=== PATIENT | male | born 1995 | race Caucasian/White ===

== ENCOUNTER 2017-06-16 16:41 | Emergency (ER) | payer OTHER ==
[2017-06-16 16:50] VITALS: TEMP 98
[2017-06-16] MEDS ORDERED: DIPH,PERTUS(ACELL)TETVAC-LF 0.5 ML VIAL IM ONE (16:52)
[2017-06-16 17:20] VITALS: BP 135/67; PULSE 95; RESP 18
--- NOTE | 2017-06-16 17:32 | ED ---
Wound/Laceration HPI - General Chief Complaint: Wound/Laceration Stated Complaint: Laceration-[facility] Time Seen by Provider: 06/16/17 16:48 Source: patient, RN notes reviewed Mode of arrival: ambulatory Limitations: no limitations - History of Present Illness Initial Comments: This is a 21-year-old male who presents to the emergency department with chief complaint of finger laceration. Patient states that immediately prior to arrival he was working at [employer] He was cleaning off a knife with a paper towel and lacerated his right third digit. Patient states that he notified his manager filter who transported him immediately to the emergency department. Patient states he is unsure if he is up-to-date with his tetanus vaccination. Denies fever, chills, chest pain, shortness of breath, abdominal pain, nausea or vomiting, constipation or diarrhea, dysuria or hematuria, numbness or tingling, headache or vision changes. - Related Data Previous Rx's Medication Instructions Recorded Cephalexin [Keflex] 500 mg PO Q12HR #20 cap 06/16/17 Allergies Allergy/AdvReac Type Severity Reaction Status Date / Time No Known Allergies Allergy Verified 06/16/17 16:55 Review of Systems ROS Statement: Those systems with pertinent positive or pertinent negative responses have been documented in the HPI. ROS Other: All systems not noted in ROS Statement are negative. Past Medical History Past Medical History: No Reported History History of Any Multi-Drug Resistant Organisms: None Reported Past Surgical History: Ear Surgery Past Psychological History: No Psychological Hx Reported Smoking Status: Never smoker Past Alcohol Use History: None Reported Past Drug Use History: Marijuana General Exam - General Exam Comments Initial Comments: General: Awake and alert, well-developed; in no apparent distress. HEENT: Head atraumatic, normocephalic. Pupils are equal, round and reactive to light. Extraocular movements intact. Oropharynx moist without erythema or exudate. Neck: Supple. Normal ROM. Cardiovascular: Regular rate and rhythm. No murmurs, rubs or gallops. Chest symmetrical. Respiratory: Lungs clear to auscultation bilaterally. No wheezes, rales or rhonchi. Normal respiratory effort with no use of accessory muscles. Musculoskeletal: Normal active and passive range of motion of the right third digit. Sensation is intact. Radial pulses are 2+ equal and palpable bilaterally. Skin: [place], warm and dry. There is a 1.5 cm superficial crescent-shaped laceration over palmar aspect of the DIP joint right third digit. Bleeding is controlled. Neurological: Alert and oriented x3. CN II-XII grossly intact. Speech is fluent and answers are appropriate. No focal neuro deficits. Psychiatric: Normal mood and affect. No overt signs of depression or anxiety noted. Limitations: no limitations Course Vital Signs 06/16/17 16:47 Temperature 98.0 F Pulse Rate 95 Respiratory 18 Rate Blood Pressure 135/67 O2 Sat by Pulse 99 Oximetry Procedures - Laceration Laceration #1 Indication: laceration Site: hand (distal right 3rd digit ) Size (cm): 1 (1.5cm ) Description: irregular (crescent-shaped) Depth: simple, single layer Anesthetic Used: lidocaine 1% Anesthesia Technique: nerve block Pre-repair: wound explored, irrigated extensively, deep structures intact Type of Sutures: nylon Size of Sutures: 4-0 Number of Sutures: 3 Technique: simple, interrupted Patient Tolerated Procedure: well, no complications Medical Decision Making - Medical Decision Making This is a 21-year-old male who presents to the emergency department with chief complaint of right middle finger laceration. 3 sutures were placed and patient tolerated well without complication. He is neurovascularly intact. x-ray revealed no acute abnormalities. Patient will be discharged with recommendation to have sutures removed in 10-14 days. Given updated tetanus vaccination while in the emergency department. Patient will be allowed to return to work but recommended him to keep sutures covered with a clean, dry dressing. He is in agreement with plan and voices understanding. All questions were answered. Disposition Clinical Impression: Finger laceration Disposition: HOME SELF-CARE Condition: Good Instructions: Finger Laceration (ED) Additional Instructions: Please have sutures removed in 10-14 days either here at the emergency department or with your primary care provider. Please follow up with primary care provider within 1-2 days. Return to emergency department if symptoms should worsen or any concerns arise. Prescriptions: Cephalexin [Keflex] 500 mg PO Q12HR #20 cap Referrals: None,Stated [Primary Care Provider] - 1-2 days Time of Disposition: 17:32
--- NOTE | 2017-06-16 17:32 | XR ---
PROCEDURE: XR finger RT - 3 views DATE AND TIME: 06/16/2017 5:05 PM REFERRING PHYSICIAN: Belén Randall CLINICAL INDICATION: PHH, laceration right middle finger TECHNIQUE: AP and lateral and oblique views COMPARISON: None FINDINGS: There is no fracture or malalignment. The soft tissues are unremarkable. There are no radiopaque foreign bodies. No subcutaneous emphysema. IMPRESSION: NO ACUTE PROCESS.
== END 2017-06-16 17:55 | disposition home or self-care (01) ==
LOC: EC 16:41
DX: S61.212A Laceration without foreign body of right middle finger without damage to nail, initial encounter (principal); Z23 Encounter for immunization; W26.0XXA Contact with knife, initial encounter; Y99.0 Civilian activity done for income or pay
CPT/HCPCS: 12001; 90471; 90715; 99283